=== PATIENT | female | born 1945 ===

== ENCOUNTER 2017-02-10 06:08 | Inpatient (IN) | payer MEDICARE, BC ==
[2017-02-09 07:55] VITALS: BMI 23.4
[2017-02-10] MEDS ORDERED: Midazolam 2 MG/2 ML VIAL ONE (07:00)
[2017-02-10] MEDS ORDERED: Propofol 10 mg/ml Inj (20 ML) ONE (07:01)
[2017-02-10] MEDS ORDERED: Phenylephrine 10 mg/ml Inj ONE (07:11)
[2017-02-10] MEDS ORDERED: Rocuronium 10 mg/ml (5 ml) ONE (07:11)
[2017-02-10] MEDS ORDERED: Absorbable Gelatin Sponge Size 100 ONE ×3 (07:29→12:37)
[2017-02-10] MEDS ORDERED: Thrombin Topical 20,000 Intl Units Spray Kit TOP ONE ×2 (07:29→12:35)
[2017-02-10] MEDS ORDERED: Bacitracin 50,000 UNIT in Sodium Chloride 0.9% Irrig 1,000 ML IR SCH (07:30)
[2017-02-10] MEDS ORDERED: Lidocaine 1% Inj (20ml) ONE (07:30)
[2017-02-10] MEDS ORDERED: HEPARIN-NS 5,000 UNITS/500 ML 5,000 UNIT/500 ML BAG IV ONE (07:35)
[2017-02-10] MEDS ORDERED: ceFAZolin IV 2 gm in Dextrose 1 GM/50 ML BAG IVPB ONE (08:06)
[2017-02-10] MEDS ORDERED: Lactated Ringer's 1,000 ML IV ONE ×4 (08:20→16:50)
[2017-02-10] MEDS ORDERED: Sodium Chloride 0.9% 500 ML IV ONE ×4 (08:31→09:05)
[2017-02-10] MEDS ORDERED: ceFAZolin IV 1 gm in Dextrose 0 GM/0 ML BAG IVPB ONE (08:36)
[2017-02-10] MEDS ORDERED: Thrombin Topical 5,000 IU Spray Kit ONE (12:27)
[2017-02-10] MEDS ORDERED: ceFAZolin IV 1 gm in Dextrose 1 GM/50 ML BAG IVPB ONE (12:43)
[2017-02-10] MEDS ORDERED: Neostigmine Methylsulfate 3mg/3ml Syringe IV ONE (13:27)
--- NOTE | 2017-02-10 13:34 | PCM.SURG1 ---
Surgeon's Initial Post Op Note - Surgeon's Notes Surgeon: Dr. Thomas Cloth Bolt Bander: Dr. Grant PGY3; Dr. Celis PGY2; Yesenia Garrett Type of Anesthesia: General Endo Pre-Operative Diagnosis: Right Carotid artery stenosis Operative Findings: see operative report Post-Operative Diagnosis: same Operation Performed: Right Carotid Endarterectomy Specimen/Specimens Removed: plaque Estimated Blood Loss: EBL {In ML}: 150 Blood Products Given: N/A Drains Used: No Drains Post-Op Condition: Good Date of Surgery/Procedure: 02/10/17 Time of Surgery/Procedure: 08:00
[2017-02-10] MEDS ORDERED: Oxycodone/Acetaminophen 5/325 mg Tab PO PRN (13:36)
[2017-02-10] MEDS ORDERED: Phenylephrine 30 MG in Dextrose 5% In Water 250 ML IV PRN (13:39)
[2017-02-10] MEDS ORDERED: Nitroglycerin 50mg in D5W 50 MG/250 ML BOTTLE IV PRN (13:45)
[2017-02-10] MEDS ORDERED: Lactated Ringer's 1,000 ML IV SCH (14:30)
[2017-02-10] MEDS: (Novolin R) Insulin Human Regular 100 units/ml vial SC SCH (16:50)
[2017-02-10] MEDS ORDERED: Fluticasone Nasal 50 mcg/Spray NAS PRN (18:00)
[2017-02-10] MEDS: ceFAZolin IV 1 gm in Dextrose 1 GM/50 ML BAG IVPB SCH (20:50)
--- NOTE | 2017-02-10 22:11 | CT ---
EXAM: CT Head Without Intravenous Contrast CLINICAL HISTORY: 71 years old, female; Signs and symptoms and condition or disease; Headache; Tension; Dizziness and weakness, extremity; Additional info: Post op carotid headache TECHNIQUE: Axial computed tomography images of the head/brain without intravenous contrast. All CT scans at this facility use one or more dose reduction techniques, viz.: automated exposure control; ma/kV adjustment per patient size (including targeted exams where dose is matched to indication; i.e. head); or iterative reconstruction technique. COMPARISON: No relevant prior studies available. FINDINGS: Beam hardening/streak artifact. Brain: Atrophy. Bilateral white matter changes. This is nonspecific and may include microangiopathic disease, small lacunae of indeterminate chronicity, chronic infarcts and/or encephalomalacia. Vascular calcification. No hemorrhage. No edema. Ventricles: No hydrocephalus. Bones: Skull is intact. Sinuses: No acute sinusitis. Mastoid air cells: No mastoid effusion. IMPRESSION: Beam hardening/streak artifact. Atrophy. Bilateral white matter changes. This is nonspecific and may include microangiopathic disease, small lacunae of indeterminate chronicity, chronic infarcts and/or encephalomalacia. Limited evaluation due to significant chronic changes without prior imaging for comparison. No acute intracranial hemorrhage. Acute infarcts/early ischemic changes may not be detectable by this modality; MRI is more sensitive in detecting acute ischemia.
[2017-02-10] MEDS: Sodium Chloride 0.9% 1,000 ML IV SCH (22:30)
--- NOTE | 2017-02-10 22:53 | CP.PCM.CON ---
History of Present Illness - History of Present Illness History of Present Illness: Attending: Mary De La Rosa MD PCP: Stephani Nunez MD Reason for Consult: Critical care Management Chief Complaint: s/p Right Endarterectomy/ right facial weakness Patient seen and examined in the ICU upon returning from surgery HPI: The hx was obtained from the Patient and the medical record review. She is a 71 years old female with hx of HTN, DM II, CAD s/p CABG, TIA who was admitted at the [facility] on 01/31/17 with chronic Dizziness and diagnosed with Symptomatic Right Internal Carotid Artery Stenosis of 80%. She had done on the MRA and MRI of the head along with Head CT. She was discharged on 02/03/17 and is here at the [facility] for the Right ICA Endarterectomy. She is transferred to the ICU for Hemodynamic management. Upon entry in the ICU she was awake and alert but was noted to have mild drooping on the right side of the face and was take for a Stat CT head where a code stroke was called as per protocol. PMH: HTN; HLD; DM II; CAD; Iron Deficiency Anemia; Gastric and Duodenal Ulcers; Multiple coplonic polyps; Diverticulosis; TIA; Right side Breast cancer; Skin Cancer; Cervical cancer, Chemo and radiotherapy; Unsteady gait; Cataract PSH: Tonsillectomy; Right lumpectomy 09/12/16; CABG X2 vessel 2013; Coronary stents inserted 2011; Bilateral cataract surgery; Multiple vascular procedures for lower extremity arterial stenosis; Right ICA Endarterectomy 02/10/17 SH: Non smoker; No Alcohol; No illegal drug use; Live with family; Uses a cane to ambulate FH: States Unknown family hx Allergies: NKDA Review of Systems - Review of Systems Systems not reviewed;Unavailable: Dementia Review of Systems: Review of systems limited because of the patient's dementia and mild post surgery lethargy. - Constitutional Constitutional: Headache - EENT Eyes: Requires Corrective Lenses. absent: Diplopia Ears: absent: Ear Discharge, Ear Pain, Tinnitus Nose/Mouth/Throat: Dry Mouth Additional comments: mild swelling of the left lower lip - Cardiovascular Cardiovascular: absent: Chest Pain, Dyspnea - Respiratory Respiratory: absent: Cough, Wheezing, Chest Congestion - Gastrointestinal Gastrointestinal: absent: Constipation, Diarrhea, Nausea, Vomiting - Genitourinary Genitourinary: absent: Dysuria, Flank Pain, Hematuria, Urinary Frequency - Neurological Neurological: Dizziness, Headaches - Hematologic/Lymphatic Hematologic: absent: Easy Bleeding, Easy Bruising Past Patient History - Infectious Disease Hx of Infectious Diseases: None - Tetanus Immunizations Tetanus Immunization: Unknown - Past Medical History & Family History Past Medical History?: Yes - Past Social History Smoking Status: Never Smoked Chewing Tobacco Use: No Cigar Use: No Alcohol: None Drugs: Denies Home Situation {Lives}: With Family - CARDIAC Hx Cardiac Disorders: Yes (CAD,UNSTABLE ANGINA,CABG X 2,ANGIOPLASTY) Hx Circulatory Problems: Yes Hx Hypercholesterolemia: Yes Hx Hypertension: Yes Hx Peripheral Vascular Disease: Yes Other/Comment: cabg 2 vessels, angioplasty carotid stenosis - PULMONARY Hx Respiratory Disorders: No - NEUROLOGICAL Hx Neurological Disorder: Yes Hx Dizziness: Yes (01-31-17) Hx Paralysis: No Hx Transient Ischemic Attacks (TIA): Yes - HEENT Hx HEENT Problems: Yes (DECREASED PHERIPEHRAL VISION SECONDARY TO CVA) Hx Cataracts: Yes (Bilateral surgery) - RENAL Hx Chronic Kidney Disease: No - ENDOCRINE/METABOLIC Hx Endocrine Disorders: Yes Hx Diabetes Mellitus Type 2: Yes - HEMATOLOGICAL/ONCOLOGICAL Hx Blood Disorders: Yes Hx Anemia: Yes Hx Blood Transfusions: Yes Hx Blood Transfusion Reaction: No Hx Cancer: Yes (Breast Ca RIGHT WITH LUMPECTOMY ONLY & SKin CA,CERVICAL CA) Hx Chemotherapy: Yes Other/Comment: diagnosed with r breast ca 2 yrs ago had chemo and radiation, RIGHT NOW ON CHEMO PO DRUGS 01-31-17 - INTEGUMENTARY Hx Dermatological Problems: No - MUSCULOSKELETAL/RHEUMATOLOGICAL Hx Musculoskeletal Disorders: Yes Hx Arthritis: Yes Hx Back Pain: Yes Hx Falls: Yes Hx Osteoarthritis: Yes Hx Unsteady Gait: Yes (CANE) - GASTROINTESTINAL Hx Gastrointestinal Disorders: Yes Hx Gastroesophageal Reflux: Yes Other/Comment: egd/colonoscopy 05/08/14,hiatal hernia, esophagitis, gastric erosions, duodenitis, diverticulosis, redundant colon, polyps, hemorrhoids - SURGICAL HISTORY Hx Surgeries: Yes Hx Cataract Extraction: Yes (BILATERAL) Hx Cardiac Catheterization: Yes Hx Coronary Artery Bypass Graft: Yes (02/2014) Hx Coronary Stent: Yes (ptca w/2 stents 2011) Hx Mastectomy: Yes (Right breast) Hx Open Heart Surgery: Yes Hx Tonsillectomy: Yes Other/Comment: R breast LUMPECTOMY, 09/12/16 abd aortagram and b/l lower ext runoff, angioplasty,stent - ANESTHESIA Hx Anesthesia: Yes Hx Anesthesia Reactions: No Hx Malignant Hyperthermia: No Meds Allergies/Adverse Reactions: Allergies Allergy/AdvReac Type Severity Reaction Status Date / Time No Known Allergies Allergy Verified 01/31/17 17:04 - Medications Medications: Current Medications Anastrozole (Arimidex 1 Mg Tab) 1 mg PO DAILY [facility] Clopidogrel Bisulfate (Plavix) 75 mg PO DAILY [facility] Enoxaparin Sodium (Lovenox) 40 mg SC DAILY [facility] Fluticasone Propionate (Flonase) 1 spr CHARLY DAILY PRN PRN Reason: Allergy symptoms Hydralazine HCl (Apresoline) 25 mg PO BID [facility] Last Admin: 02/10/17 18:00 Dose: 25 mg Hydrochlorothiazide (Microzide) 12.5 mg PO DAILY [facility] Nitroglycerin/Dextrose (Nitroglycerin 50 Mg/250 Ml D5w) 50 mg in 250 mls @ 1.5 mls/hr IV .Q24H PRN; Protocol; 5 MCG/MIN PRN Reason: TITRATE PER PROTOCOL Phenylephrine HCl 30 mg/ (Dextrose) 253 mls @ 10.12 mls/hr IV .Q24H PRN; Protocol; 20 MCG/MIN PRN Reason: TITRATE PER MD ORDER Sodium Chloride (Sodium Chloride 0.9%) 1,000 mls @ 75 mls/hr IV .[id number] [facility] Insulin Human Regular (Novolin R) 0 unit SC ACHS [facility] PRN Reason: Protocol Last Admin: 02/10/17 16:50 Dose: 2 unit Losartan Potassium (Cozaar) 50 mg PO DAILY [facility] Metformin HCl (Glucophage) 500 mg PO BID [facility] Last Admin: 02/10/17 18:00 Dose: 500 mg Metoprolol Tartrate (Lopressor) 50 mg PO BID [facility] Last Admin: 02/10/17 18:00 Dose: 50 mg Morphine Sulfate (Morphine) 1 mg IVP Q10M PRN PRN Reason: Pain, moderate (4-7) Last Admin: 02/10/17 16:07 Dose: 1 mg Morphine Sulfate (Morphine) 4 mg IVP Q4 PRN PRN Reason: Pain, moderate (4-7) Oxycodone/Acetaminophen (Percocet 5/325 Mg Tab) 2 tab PO Q4H PRN PRN Reason: Pain, moderate (4-7) Stop: 02/13/17 13:37 Last Admin: 02/10/17 18:05 Dose: 2 tab Rivastigmine (Exelon 9.5 Mg/24 Hr Patch) 1 patch TD DAILY [facility] Rosuvastatin Calcium (Crestor) 5 mg PO HS [facility] Physical Exam - Constitutional Appears: No Acute Distress - Head Exam Head Exam: ATRAUMATIC, NORMAL INSPECTION, NORMOCEPHALIC - Eye Exam Eye Exam: EOMI, Normal appearance Pupil Exam: NORMAL ACCOMODATION, PERRL - ENT Exam ENT Exam: Mucous Membranes Moist, Normal Exam. absent: Normal External Ear Exam , Normal Oropharynx - Neck Exam Additional comments: Post surgical dressing at the right neck , dry and clean. Post surgical neck pain - Respiratory Exam Respiratory Exam: Clear to Auscultation Bilateral. absent: Rales, Rhonchi, Wheezes - Cardiovascular Exam Cardiovascular Exam: REGULAR RHYTHM, RRR, +S1, +S2. absent: Gallop, JVD - GI/Abdominal Exam GI & Abdominal Exam: Normal Bowel Sounds, Soft. absent: Organomegaly, Tenderness - Rectal Exam Rectal Exam: Deferred - Extremities Exam Extremities exam: Positive for: full ROM, normal inspection. Negative for: calf tenderness, joint swelling Additional comments: Right forearm arterial line - Back Exam Back exam: NORMAL INSPECTION. absent: CVA tenderness (L), CVA tenderness (R) - Neurological Exam Neurological exam: Alert, CN II-XII Intact, Oriented x3, Reflexes Normal Additional comments: Awake and alert, clear speech, Diminished right nasolabial fold with the tongue rotating mildly to the right Motor strength 5/5 at all extremities - Psychiatric Exam Psychiatric exam: Normal Affect, Normal Mood - Skin Skin Exam: Dry, Intact, Normal Color, Warm Results - Vital Signs Recent Vital Signs: Last Vital Signs Temp 97.5 F L 02/10/17 20:30 Pulse 66 02/10/17 20:30 Resp 15 02/10/17 20:30 BP 141/57 L 02/10/17 20:30 Pulse Ox 100 02/10/17 20:30 - Labs Labs: Laboratory Results - last 24 hr 02/10/17 02/10/17 02/10/17 06:53 07:00 10:30 POC Glucose (mg/dL) 170 H 166 H Blood Type B POSITIVE Antibody Screen Negative 02/10/17 02/10/17 02/10/17 12:30 16:44 21:43 POC Glucose (mg/dL) 191 H 226 H 131 H Blood Type Antibody Screen - Imaging and Cardiology CT Head Status: Image reviewed by me, Report reviewed by me Additional comment: 02/10/17 Bilateral white matter changes. This is nonspecific and may include microangiopathic disease, small lacunae of indeterminate chronicity. Chronic infarct and / or encephalomalacia. No acute intracranial hemorrhage. MRI - head Status: Report reviewed by me Additional comment: 01/31/17 1. Superior right parietal lobe : There is a Small foci of restricted diffusion. Suggesting acute ischemic change 2. There are scattered foci of high Flair signal intensity within the cerebra white matter. representing chronic small vessel ischemic diseases . 3. Modest Atrophy 4. There id ventriculomegaly. Normal pressure of Hydrocephalus cannot be excluded 5. Additional chronic ischemic Assessment & Plan - Assessment and Plan (Free Text) Plan: 71 years old female, admitted at the [facility] on 01/31/17 and diagnosed with Symptomatic Right Internal Carotid Artery Stenosis of 80%. Now at the [facility] for the Right ICA Endarterectomy. She is transferred to the ICU for Hemodynamic management. Upon entry in the ICU she was awake and alert but was noted to have mild drooping on the right side of the face. #. R- ICA 80% stenosis s/p Right Endarterectomy - Blood pressure measurement with Arterial line measurement - Vascular surgery management #. Right facial weakness, of vs new CVA - Stat Head CT showed Chronic infarct and or Encephalomalacia - Consult Dr Lawton - Continue Plavix, Crestor and start ASA #. DM II - Humulog - Metformin - Aspart -Hba1c 6.5 on 02/02/17 #. HTN - Hydralizine/ Metoprolol, Losartn, HCTZ - Monitor BP #. CADs/p CABG - Plavix/ Crestor #. PUD - Pepcid #. DVT prophylaxis with Lovenox #. Code Status: Full - Date & Time Date: 02/10/17 Time: 22:53
[2017-02-11] MEDS: (Novolin R) Insulin Human Regular 100 units/ml vial SC SCH ×4 (02:10→16:35)
[2017-02-11] MEDS ORDERED: ceFAZolin IV 1 gm in Dextrose 1 GM/50 ML BAG IVPB ONE (04:00)
[2017-02-11 06:10] VITALS: TEMP 98.8
[2017-02-11 06:13] LABS: BASO % 0.3 % (0.0-2.0); HEMATOCRIT 20.3 % (34.0-47.0); LYMPH # 0.5 K/uL (1.0-4.3); LYMPH % 4.1 % (20.0-40.0); MEAN CELL VOLUME 84.5 fL (81.0-99.0); MEAN CORPUSCULAR HEMOGLOBIN 28.6 pg (27.0-31.0); MEAN CORPUSCULAR HGB CONC 33.9 g/dL (33.0-37.0); MEAN PLATELET VOLUME 9.2 fL (7.2-11.7); MONO # 1.7 K/uL (0.0-0.8); MONO % 13.3 % (0.0-10.0); PLATELET COUNT 140 K/uL (130-400); RED CELL DISTRIBUTION WIDTH 16.8 % (11.5-14.5); WHITE BLOOD COUNT 12.6 K/uL (4.8-10.8)
[2017-02-11 06:24] LABS: ALKALINE PHOSPHATASE 50 U/L (38-126); ALT/SGPT 20 U/L (9-52); AST/SGOT 20 U/L (14-36); BILIRUBIN,TOTAL 0.4 mg/dL (0.2-1.3); BLOOD UREA NITROGEN 19 mg/dL (7-17); CARBON DIOXIDE 22 mmol/L (22-30); CHLORIDE 101 mmol/L (98-107); GFR AFRICAN-AMERICAN > 60; GLUCOSE,RANDOM 142 mg/dL (65-105); MAGNESIUM 1.2 mg/dL (1.6-2.3); PHOSPHOROUS 3.2 mg/dL (2.5-4.5); POTASSIUM 3.5 mmol/L (3.6-5.2); SODIUM 136 mmol/L (132-148); TOTAL PROTEIN 6.6 g/dL (6.3-8.3)
[2017-02-11] MEDS: ceFAZolin IV 1 gm in Dextrose 1 GM/50 ML BAG IVPB SCH (08:03)
[2017-02-11 08:46] LABS: NEUTROPHIL 86 % (50-75); TOTAL CELLS COUNTED 100
[2017-02-11 08:47] LABS: LARGE PLATELETS PRESENT
[2017-02-11 09:02] LABS: BASO % 0.2 % (0.0-2.0); EOS % 0.1 % (0.0-4.0); HEMATOCRIT 23.1 % (34.0-47.0); LYMPH # 0.4 K/uL (1.0-4.3); LYMPH % 3.5 % (20.0-40.0); MEAN CORPUSCULAR HEMOGLOBIN 28.4 pg (27.0-31.0); MEAN CORPUSCULAR HGB CONC 34.1 g/dL (33.0-37.0); MONO % 16.1 % (0.0-10.0); RED CELL DISTRIBUTION WIDTH 16.8 % (11.5-14.5); WHITE BLOOD COUNT 12.5 K/uL (4.8-10.8)
[2017-02-11 09:14] LABS: CHLORIDE 101 mmol/L (98-107)
[2017-02-11 09:15] LABS: POTASSIUM 3.6 mmol/L (3.6-5.2); SODIUM 135 mmol/L (132-148)
[2017-02-11 09:17] LABS: ALB/GLOB RATIO 1.1 (1.0-2.1); AST/SGOT 22 U/L (14-36); BILIRUBIN,TOTAL 0.5 mg/dL (0.2-1.3); CARBON DIOXIDE 21 mmol/L (22-30); GFR AFRICAN-AMERICAN > 60; TOTAL PROTEIN 6.6 g/dL (6.3-8.3)
[2017-02-11 09:18] LABS: ALKALINE PHOSPHATASE 47 U/L (38-126); ALT/SGPT 19 U/L (9-52); BLOOD UREA NITROGEN 20 mg/dL (7-17); CALCIUM 8.6 mg/dl (8.6-10.4); GLUCOSE,RANDOM 132 mg/dL (65-105); MAGNESIUM 1.2 mg/dL (1.6-2.3)
[2017-02-11] MEDS ORDERED: Enoxaparin 40 mg Syringe SC SCH (10:00)
[2017-02-11] MEDS: Sodium Chloride 0.9% 1,000 ML IV SCH (10:46)
[2017-02-11 11:28] VITALS: O2SAT 100
[2017-02-11] MEDS ORDERED: Magnesium Sulfate 1 gm in D5W 1 GM/100 ML BAG IVPB ONE (12:15)
[2017-02-11 17:04] VITALS: PULSE 75
--- NOTE | 2017-02-11 18:41 | CP.CCUPN ---
CCU Subjective - Physician Review Events Since Last Encounter (Free Text): 02/27/17 10:59 Reason for Consult: Critical care Management Chief Complaint: s/p Right Endarterectomy/ right facial weakness Patient seen and examined in the ICU upon returning from surgery HPI: The hx was obtained from the Patient and the medical record review. She is a 71 years old female with hx of HTN, DM II, CAD s/p CABG, TIA who was admitted at the [facility] on 01/31/17 with chronic Dizziness and diagnosed with Symptomatic Right Internal Carotid Artery Stenosis of 80%. She had done on the MRA and MRI of the head along with Head CT. She was discharged on 02/03/17 and is here at the [facility] for the Right ICA Endarterectomy. She is transferred to the ICU for Hemodynamic management. Upon entry in the ICU she was awake and alert but was noted to have mild drooping on the right side of the face and was take for a Stat CT head where a code stroke was called as per protocol. PMH: HTN; HLD; DM II; CAD; Iron Deficiency Anemia; Gastric and Duodenal Ulcers; Multiple coplonic polyps; Diverticulosis; TIA; Right side Breast cancer; Skin Cancer; Cervical cancer, Chemo and radiotherapy; Unsteady gait; Cataract PSH: Tonsillectomy; Right lumpectomy 09/12/16; CABG X2 vessel 2013; Coronary stents inserted 2011; Bilateral cataract surgery; Multiple vascular procedures for lower extremity arterial stenosis; Right ICA Endarterectomy 02/10/17 SH: Non smoker; No Alcohol; No illegal drug use; Live with family; Uses a cane to ambulate FH: States Unknown family hx Allergies: NKDA Vital signs reviewed No neck vein distention noted Chest good air entry bilaterally, no wheezing or rales noted CVS regular heart sound, no murmur noted Abdomen soft, nontender. Extremities no pedal edema [employer] alert awake oriented 3, no functional neurological deficit Labs reviewed CAT scan reviewed Mild weakness in the right side of the face noted Assessment and recommendation: 72 female hypertension diabetes CAD coronary artery bypass graft admitted with TIA. Status post endarterectomy. Mild droop on the right side. less likely COPD Continue to monitor will follow the patient. ICU monitoring. Clinical stable otherwise CCU Objective - Vital Signs / Intake & Output Vital Signs (Last 4 hours): Vital Signs Pulse Resp BP Pulse Ox 02/11/17 18:00 75 19 02/11/17 17:39 80 15 137/51 L 02/11/17 17:00 75 14 02/11/17 16:38 66 14 100/40 L 02/11/17 16:00 65 15 02/11/17 15:00 71 17 100 Intake and Output (Last 8hrs): Intake & Output 02/11/17 02/11/17 02/11/17 06:59 14:59 22:59 Intake Total 600 975 180 Output Total 490 1000 475 Balance 110 -25 -295 Weight 145 lb 8.081 oz Intake: Intake, IV Amount 600 525 0 Left Antecubital 600 525 0 Oral 450 180 Output: Urine 490 1000 475 Urethral ([place]) 490 1000 475 Stool 0 0 Emesis 0 0 - Medications Active Medications: Active Medications Generic Name Dose Route Start Last Admin Trade Name Freq PRN Reason Stop Dose Admin Anastrozole 1 mg 02/11/17 10:00 02/11/17 10:34 Arimidex 1 Mg Tab PO 1 mg DAILY ROSANNE Administration Clopidogrel Bisulfate 75 mg 02/11/17 10:00 02/11/17 10:27 Plavix PO 75 mg DAILY ROSANNE Administration Enoxaparin Sodium 40 mg 02/11/17 10:00 02/11/17 10:29 Lovenox SC 40 mg DAILY ROSANNE Administration Famotidine 20 mg 02/11/17 10:00 02/11/17 10:28 Pepcid PO 20 mg DAILY ROSANNE Administration Fluticasone Propionate 1 spr 02/10/17 18:00 Flonase CHARLY DAILY PRN Allergy symptoms Hydralazine HCl 25 mg 02/10/17 18:00 02/11/17 17:10 Apresoline PO Not Given BID ROSANNE Hydrochlorothiazide 12.5 mg 02/11/17 10:00 02/11/17 10:28 Microzide PO 12.5 mg DAILY ROSANNE Administration Nitroglycerin/Dextrose 50 mg in 250 mls @ 1.5 mls/hr 02/10/17 13:45 Nitroglycerin 50 Mg/250 Ml D5w IV .Q24H PRN TITRATE PER PROTOCOL Protocol 5 MCG/MIN Phenylephrine HCl 30 mg/ 253 mls @ 10.12 mls/hr 02/10/17 13:39 Dextrose IV .Q24H PRN TITRATE PER MD ORDER Protocol 20 MCG/MIN Ibuprofen 600 mg 02/11/17 06:00 02/11/17 17:21 Motrin Tab PO 600 mg Q6 ROSANNE Administration Insulin Human Regular 0 unit 02/10/17 16:30 02/11/17 16:35 Novolin R SC Not Given ACHS [facility] Protocol Losartan Potassium 50 mg 02/11/17 10:00 02/11/17 10:27 Cozaar PO 50 mg DAILY ROSANNE Administration Metformin HCl 500 mg 02/10/17 18:00 02/11/17 17:21 Glucophage PO 500 mg BID ROSANNE Administration Metoprolol Tartrate 50 mg 02/10/17 18:00 02/11/17 17:10 Lopressor PO Not Given BID ROSANNE Morphine Sulfate 2 mg 02/11/17 00:17 02/11/17 16:35 Morphine IM 2 mg Q4 PRN Administration Pain, moderate (4-7) Morphine Sulfate 4 mg 02/11/17 00:20 Morphine IVP Q4 PRN Pain, severe (8-10) Oxycodone/Acetaminophen 2 tab 02/10/17 13:36 02/10/17 18:05 Percocet 5/325 Mg Tab PO 02/13/17 13:37 2 tab Q4H PRN Administration Pain, moderate (4-7) Rivastigmine 1 patch 02/11/17 10:45 02/11/17 10:45 Exelon 9.5 Mg/24 Hr Patch TD 1 patch DAILY ROSANNE Administration Rosuvastatin Calcium 5 mg 02/11/17 22:00 Crestor PO HS [facility] - Patient Studies Lab Studies: Lab Studies 02/11/17 02/11/17 02/11/17 Range/Units 16:08 11:23 08:54 WBC (4.8-10.8) K/uL RBC (3.80-5.20) Mil/uL Hgb (11.0-16.0) g/dL Hct (34.0-47.0) % MCV (81.0-99.0) fL MCH (27.0-31.0) pg MCHC (33.0-37.0) g/dL RDW (11.5-14.5) % Plt Count (130-400) K/uL MPV (7.2-11.7) fL Neut % (Auto) (50.0-75.0) % Lymph % (Auto) (20.0-40.0) % [place] % (Auto) (0.0-10.0) % Eos % (Auto) (0.0-4.0) % Baso % (Auto) (0.0-2.0) % Neut # (1.8-7.0) K/uL Lymph # (1.0-4.3) K/uL [place] # (0.0-0.8) K/uL Eos # (0.0-0.7) K/uL Baso # (0.0-0.2) K/uL Neutrophils % (Manual) (50-75) % Band Neutrophils % (0-2) % Lymphocytes % (Manual) (20-40) % Monocytes % (Manual) (0-10) % Platelet Estimate (NORMAL) Large Platelets Polychromasia Hypochromasia (manual) Poikilocytosis (manual Anisocytosis (manual) Ovalocytes Sodium 135 (132-148) mmol/L Potassium 3.6 (3.6-5.2) mmol/L Chloride 101 (98-107) mmol/L Carbon Dioxide 21 L (22-30) mmol/L Anion Gap 17 (10-20) BUN 20 H (7-17) mg/dL Creatinine 0.9 (0.7-1.2) MG/DL Est GFR ( Amer) > 60 Est GFR (Non-Af Amer) > 60 POC Glucose (mg/dL) 189 H 185 H (65-110) mg/dL Random Glucose 132 H (65-105) mg/dL Calcium 8.6 (8.6-10.4) mg/dl Phosphorus (2.5-4.5) mg/dL Magnesium 1.2 L (1.6-2.3) mg/dL Total Bilirubin 0.5 (0.2-1.3) mg/dL AST 22 (14-36) U/L ALT 19 (9-52) U/L Alkaline Phosphatase 47 (38-126) U/L Total Protein 6.6 (6.3-8.3) g/dL Albumin 3.5 (3.5-5.0) g/dL Globulin 3.1 (2.2-3.9) gm/dL Albumin/Globulin Ratio 1.1 (1.0-2.1) 09/02/1902/11/17 02/11/17 Range/Units 08:54 08:12 06:04 WBC 12.5 H (4.8-10.8) K/uL RBC 2.79 L (3.80-5.20) Mil/uL Hgb 7.9 L (11.0-16.0) g/dL Hct 23.1 L (34.0-47.0) % MCV 83.0 (81.0-99.0) fL MCH 28.4 (27.0-31.0) pg MCHC 34.1 (33.0-37.0) g/dL RDW 16.8 H (11.5-14.5) % Plt Count 134 (130-400) K/uL MPV 9.0 (7.2-11.7) fL Neut % (Auto) 80.1 H (50.0-75.0) % Lymph % (Auto) 3.5 L (20.0-40.0) % [place] % (Auto) 16.1 H (0.0-10.0) % Eos % (Auto) 0.1 (0.0-4.0) % Baso % (Auto) 0.2 (0.0-2.0) % Neut # 10.0 H (1.8-7.0) K/uL Lymph # 0.4 L (1.0-4.3) K/uL [place] # 2.0 H (0.0-0.8) K/uL Eos # 0.0 (0.0-0.7) K/uL Baso # 0.0 (0.0-0.2) K/uL Neutrophils % (Manual) (50-75) % Band Neutrophils % (0-2) % Lymphocytes % (Manual) (20-40) % Monocytes % (Manual) (0-10) % Platelet Estimate (NORMAL) Large Platelets Polychromasia Hypochromasia (manual) Poikilocytosis (manual Anisocytosis (manual) Ovalocytes Sodium 136 (132-148) mmol/L Potassium 3.5 L (3.6-5.2) mmol/L Chloride 101 (98-107) mmol/L Carbon Dioxide 22 (22-30) mmol/L Anion Gap 17 (10-20) BUN 19 H (7-17) mg/dL Creatinine 0.9 (0.7-1.2) MG/DL Est GFR ( Amer) > 60 Est GFR (Non-Af Amer) > 60 POC Glucose (mg/dL) 158 H (65-110) mg/dL Random Glucose 142 H (65-105) mg/dL Calcium 9.0 (8.6-10.4) mg/dl Phosphorus 3.2 (2.5-4.5) mg/dL Magnesium 1.2 L (1.6-2.3) mg/dL Total Bilirubin 0.4 (0.2-1.3) mg/dL AST 20 (14-36) U/L ALT 20 (9-52) U/L Alkaline Phosphatase 50 (38-126) U/L Total Protein 6.6 (6.3-8.3) g/dL Albumin 3.3 L (3.5-5.0) g/dL Globulin 3.4 (2.2-3.9) gm/dL Albumin/Globulin Ratio 1.0 (1.0-2.1) 02/11/17 02/10/17 Range/Units 06:04 21:43 WBC 12.6 H (4.8-10.8) K/uL RBC 2.40 L (3.80-5.20) Mil/uL Hgb 6.9 L (11.0-16.0) g/dL Hct 20.3 L (34.0-47.0) % MCV 84.5 (81.0-99.0) fL MCH 28.6 (27.0-31.0) pg MCHC 33.9 (33.0-37.0) g/dL RDW 16.8 H (11.5-14.5) % Plt Count 140 (130-400) K/uL MPV 9.2 (7.2-11.7) fL Neut % (Auto) 82.3 H (50.0-75.0) % Lymph % (Auto) 4.1 L (20.0-40.0) % [place] % (Auto) 13.3 H (0.0-10.0) % Eos % (Auto) 0.0 (0.0-4.0) % Baso % (Auto) 0.3 (0.0-2.0) % Neut # 10.4 H (1.8-7.0) K/uL Lymph # 0.5 L (1.0-4.3) K/uL [place] # 1.7 H (0.0-0.8) K/uL Eos # 0.0 (0.0-0.7) K/uL Baso # 0.0 (0.0-0.2) K/uL Neutrophils % (Manual) 86 H (50-75) % Band Neutrophils % 1 (0-2) % Lymphocytes % (Manual) 6 L (20-40) % Monocytes % (Manual) 7 (0-10) % Platelet Estimate Normal (NORMAL) Large Platelets Present Polychromasia Slight Hypochromasia (manual) Slight Poikilocytosis (manual Slight Anisocytosis (manual) Slight Ovalocytes Slight Sodium (132-148) mmol/L Potassium (3.6-5.2) mmol/L Chloride (98-107) mmol/L Carbon Dioxide (22-30) mmol/L Anion Gap (10-20) BUN (7-17) mg/dL Creatinine (0.7-1.2) MG/DL Est GFR ( Amer) Est GFR (Non-Af Amer) POC Glucose (mg/dL) 131 H (65-110) mg/dL Random Glucose (65-105) mg/dL Calcium (8.6-10.4) mg/dl Phosphorus (2.5-4.5) mg/dL Magnesium (1.6-2.3) mg/dL Total Bilirubin (0.2-1.3) mg/dL AST (14-36) U/L ALT (9-52) U/L Alkaline Phosphatase (38-126) U/L Total Protein (6.3-8.3) g/dL Albumin (3.5-5.0) g/dL Globulin (2.2-3.9) gm/dL Albumin/Globulin Ratio (1.0-2.1) Laboratory Results - last 24 hr 02/10/17 02/11/17 02/11/17 21:43 06:04 06:04 WBC 12.6 H RBC 2.40 L Hgb 6.9 L Hct 20.3 L MCV 84.5 MCH 28.6 MCHC 33.9 RDW 16.8 H Plt Count 140 MPV 9.2 Neut % (Auto) 82.3 H Lymph % (Auto) 4.1 L [place] % (Auto) 13.3 H Eos % (Auto) 0.0 Baso % (Auto) 0.3 Neut # 10.4 H Lymph # 0.5 L [place] # 1.7 H Eos # 0.0 Baso # 0.0 Neutrophils % (Manual) 86 H Band Neutrophils % 1 Lymphocytes % (Manual) 6 L Monocytes % (Manual) 7 Platelet Estimate Normal Large Platelets Present Polychromasia Slight Hypochromasia (manual) Slight Poikilocytosis (manual Slight Anisocytosis (manual) Slight Ovalocytes Slight Sodium 136 Potassium 3.5 L Chloride 101 Carbon Dioxide 22 Anion Gap 17 BUN 19 H Creatinine 0.9 Est GFR ( Amer) > 60 Est GFR (Non-Af Amer) > 60 POC Glucose (mg/dL) 131 H Random Glucose 142 H Calcium 9.0 Phosphorus 3.2 Magnesium 1.2 L Total Bilirubin 0.4 AST 20 ALT 20 Alkaline Phosphatase 50 Total Protein 6.6 Albumin 3.3 L Globulin 3.4 Albumin/Globulin Ratio 1.0 02/11/17 02/11/17 02/11/17 08:12 08:54 08:54 WBC 12.5 H RBC 2.79 L Hgb 7.9 L Hct 23.1 L MCV 83.0 MCH 28.4 MCHC 34.1 RDW 16.8 H Plt Count 134 MPV 9.0 Neut % (Auto) 80.1 H Lymph % (Auto) 3.5 L [place] % (Auto) 16.1 H Eos % (Auto) 0.1 Baso % (Auto) 0.2 Neut # 10.0 H Lymph # 0.4 L [place] # 2.0 H Eos # 0.0 Baso # 0.0 Neutrophils % (Manual) Band Neutrophils % Lymphocytes % (Manual) Monocytes % (Manual) Platelet Estimate Large Platelets Polychromasia Hypochromasia (manual) Poikilocytosis (manual Anisocytosis (manual) Ovalocytes Sodium 135 Potassium 3.6 Chloride 101 Carbon Dioxide 21 L Anion Gap 17 BUN 20 H Creatinine 0.9 Est GFR ( Amer) > 60 Est GFR (Non-Af Amer) > 60 POC Glucose (mg/dL) 158 H Random Glucose 132 H Calcium 8.6 Phosphorus Magnesium 1.2 L Total Bilirubin 0.5 AST 22 ALT 19 Alkaline Phosphatase 47 Total Protein 6.6 Albumin 3.5 Globulin 3.1 Albumin/Globulin Ratio 1.1 02/11/17 02/11/17 11:23 16:08 WBC RBC Hgb Hct MCV MCH MCHC RDW Plt Count MPV Neut % (Auto) Lymph % (Auto) [place] % (Auto) Eos % (Auto) Baso % (Auto) Neut # Lymph # [place] # Eos # Baso # Neutrophils % (Manual) Band Neutrophils % Lymphocytes % (Manual) Monocytes % (Manual) Platelet Estimate Large Platelets Polychromasia Hypochromasia (manual) Poikilocytosis (manual Anisocytosis (manual) Ovalocytes Sodium Potassium Chloride Carbon Dioxide Anion Gap BUN Creatinine Est GFR ( Amer) Est GFR (Non-Af Amer) POC Glucose (mg/dL) 185 H 189 H Random Glucose Calcium Phosphorus Magnesium Total Bilirubin AST ALT Alkaline Phosphatase Total Protein Albumin Globulin Albumin/Globulin Ratio Fingerstick Blood Sugar Results: 131 Critical Care Progress Note - Nutrition Nutrition: Nutrition Category Date Time Status Soft [Dysphagia/Modified Consistency Diet] [DIET] Diets 02/11/17 Lunch Active
[2017-02-11 19:03] VITALS: BP 104/40; RESP 18
--- NOTE | 2017-02-11 20:16 | CP.PCM.DIS ---
<Madhavi Grant - Last Filed: 02/11/17 20:13> Provider - Provider Date of Admission: 02/10/17 06:08 Attending physician: Mary Thomas MD Time Spent in preparation of Discharge (in minutes): 10 Diagnosis - Discharge Diagnosis (1) Carotid stenosis, right Status: Resolved Hospital Course - Lab Results Lab Results: Most Recent Lab Values WBC 12.5 K/uL (4.8-10.8) H 02/11/17 08:54 RBC 2.79 Mil/uL (3.80-5.20) L 02/11/17 08:54 Hgb 7.9 g/dL (11.0-16.0) L 02/11/17 08:54 Hct 23.1 % (34.0-47.0) L 02/11/17 08:54 MCV 83.0 fL (81.0-99.0) 02/11/17 08:54 MCH 28.4 pg (27.0-31.0) 02/11/17 08:54 MCHC 34.1 g/dL (33.0-37.0) 02/11/17 08:54 RDW 16.8 % (11.5-14.5) H 02/11/17 08:54 Plt Count 134 K/uL (130-400) 02/11/17 08:54 MPV 9.0 fL (7.2-11.7) 02/11/17 08:54 Neut % (Auto) 80.1 % (50.0-75.0) H 02/11/17 08:54 Lymph % (Auto) 3.5 % (20.0-40.0) L 02/11/17 08:54 [place] % (Auto) 16.1 % (0.0-10.0) H 02/11/17 08:54 Eos % (Auto) 0.1 % (0.0-4.0) 02/11/17 08:54 Baso % (Auto) 0.2 % (0.0-2.0) 02/11/17 08:54 Neut # 10.0 K/uL (1.8-7.0) H 02/11/17 08:54 Lymph # 0.4 K/uL (1.0-4.3) L 02/11/17 08:54 [place] # 2.0 K/uL (0.0-0.8) H 02/11/17 08:54 Eos # 0.0 K/uL (0.0-0.7) 02/11/17 08:54 Baso # 0.0 K/uL (0.0-0.2) 02/11/17 08:54 Neutrophils % (Manual) 86 % (50-75) H 02/11/17 06:04 Band Neutrophils % 1 % (0-2) 02/11/17 06:04 Lymphocytes % (Manual) 6 % (20-40) L 02/11/17 06:04 Monocytes % (Manual) 7 % (0-10) 02/11/17 06:04 Platelet Estimate Normal (NORMAL) 02/11/17 06:04 Large Platelets Present 02/11/17 06:04 Polychromasia Slight 02/11/17 06:04 Hypochromasia (manual) Slight 02/11/17 06:04 Poikilocytosis (manual Slight 02/11/17 06:04 Anisocytosis (manual) Slight 02/11/17 06:04 Ovalocytes Slight 02/11/17 06:04 Sodium 135 mmol/L (132-148) 02/11/17 08:54 Potassium 3.6 mmol/L (3.6-5.2) 02/11/17 08:54 Chloride 101 mmol/L (98-107) 02/11/17 08:54 Carbon Dioxide 21 mmol/L (22-30) L 02/11/17 08:54 Anion Gap 17 (10-20) 02/11/17 08:54 BUN 20 mg/dL (7-17) H 02/11/17 08:54 Creatinine 0.9 MG/DL (0.7-1.2) 02/11/17 08:54 Est GFR ( Amer) > 60 02/11/17 08:54 Est GFR (Non-Af Amer) > 60 02/11/17 08:54 POC Glucose (mg/dL) 189 mg/dL (65-110) H 02/11/17 16:08 Random Glucose 132 mg/dL (65-105) H 02/11/17 08:54 Calcium 8.6 mg/dl (8.6-10.4) 02/11/17 08:54 Phosphorus 3.2 mg/dL (2.5-4.5) 02/11/17 06:04 Magnesium 1.2 mg/dL (1.6-2.3) L 02/11/17 08:54 Total Bilirubin 0.5 mg/dL (0.2-1.3) 02/11/17 08:54 AST 22 U/L (14-36) 02/11/17 08:54 ALT 19 U/L (9-52) 02/11/17 08:54 Alkaline Phosphatase 47 U/L (38-126) 02/11/17 08:54 Total Protein 6.6 g/dL (6.3-8.3) 02/11/17 08:54 Albumin 3.5 g/dL (3.5-5.0) 02/11/17 08:54 Globulin 3.1 gm/dL (2.2-3.9) 02/11/17 08:54 Albumin/Globulin Ratio 1.1 (1.0-2.1) 02/11/17 08:54 Blood Type B POSITIVE 02/10/17 07:00 Antibody Screen Negative 02/10/17 07:00 - Hospital Course Hospital Course: 71 yo F w/ 80% R carotid artery stenosis who was admitted to the ICU after undergoing Right Carotid Endarterectomy with patch angioplasty. Surgery went well without complications. Pt developed some mild swelling post op which was to be expected. She was also noted to have a swollen lip which is commonly seen and most likely related to the ET tube during the surgery. Overall, pt did well postoperatively. BP remained well controlled throughout the night. On POD #1 she was tolerating a soft diet, pain was well controlled with PO meds , she was OOB and ambulatory. Pt was seen by the surgeon and clear for discharge home. Discharge Exam - Head Exam Head Exam: ATRAUMATIC, NORMAL INSPECTION, NORMOCEPHALIC - Eye Exam Eye Exam: EOMI, Normal appearance - Neck Exam Additional comments: mild swelling r lateral neck, dressing C/D/I, trachea midline - Respiratory Exam Respiratory Exam: NORMAL BREATHING PATTERN. absent: UNREMARKABLE - Neurological Exam Neurological exam: Alert, CN II-XII Intact, Normal Gait, Oriented x3 Additional comments: No motor or sensory deficits - Skin Skin Exam: Dry, Intact Discharge Plan - Discharge Medications Prescriptions: oxyCODONE/Acetaminophen [Percocet 5/325 mg Tab] 2 tab PO Q4H PRN #20 tab PRN Reason: Pain, Moderate (4-7) - Follow Up Plan Condition: GOOD Disposition: HOME/ ROUTINE Instructions: Carotid Endarterectomy (DC), Carotid Artery Disease (DC) Additional Instructions: F/U with Dr. Thomas in office in 1 week. You may shower. No soaking/bathing in tub. Resume regular diet and light activities. Continue Plavix/ASA. Referrals: Mary Thomas MD [Medical Doctor] - <Mary Thomas - Last Filed: 02/12/17 14:22> Provider - Provider Date of Admission: 02/10/17 06:08 Attending physician: Mary Thomas MD Hospital Course - Lab Results Lab Results: Micro Results 02/11/17 Unknown Naris MRSA Culture (Admit) - Final MRSA NOT DETECTED Most Recent Lab Values WBC 12.5 K/uL (4.8-10.8) H 02/11/17 08:54 RBC 2.79 Mil/uL (3.80-5.20) L 02/11/17 08:54 Hgb 7.9 g/dL (11.0-16.0) L 02/11/17 08:54 Hct 23.1 % (34.0-47.0) L 02/11/17 08:54 MCV 83.0 fL (81.0-99.0) 02/11/17 08:54 MCH 28.4 pg (27.0-31.0) 02/11/17 08:54 MCHC 34.1 g/dL (33.0-37.0) 02/11/17 08:54 RDW 16.8 % (11.5-14.5) H 02/11/17 08:54 Plt Count 134 K/uL (130-400) 02/11/17 08:54 MPV 9.0 fL (7.2-11.7) 02/11/17 08:54 Neut % (Auto) 80.1 % (50.0-75.0) H 02/11/17 08:54 Lymph % (Auto) 3.5 % (20.0-40.0) L 02/11/17 08:54 [place] % (Auto) 16.1 % (0.0-10.0) H 02/11/17 08:54 Eos % (Auto) 0.1 % (0.0-4.0) 02/11/17 08:54 Baso % (Auto) 0.2 % (0.0-2.0) 02/11/17 08:54 Neut # 10.0 K/uL (1.8-7.0) H 02/11/17 08:54 Lymph # 0.4 K/uL (1.0-4.3) L 02/11/17 08:54 [place] # 2.0 K/uL (0.0-0.8) H 02/11/17 08:54 Eos # 0.0 K/uL (0.0-0.7) 02/11/17 08:54 Baso # 0.0 K/uL (0.0-0.2) 02/11/17 08:54 Neutrophils % (Manual) 86 % (50-75) H 02/11/17 06:04 Band Neutrophils % 1 % (0-2) 02/11/17 06:04 Lymphocytes % (Manual) 6 % (20-40) L 02/11/17 06:04 Monocytes % (Manual) 7 % (0-10) 02/11/17 06:04 Platelet Estimate Normal (NORMAL) 02/11/17 06:04 Large Platelets Present 02/11/17 06:04 Polychromasia Slight 02/11/17 06:04 Hypochromasia (manual) Slight 02/11/17 06:04 Poikilocytosis (manual Slight 02/11/17 06:04 Anisocytosis (manual) Slight 02/11/17 06:04 Ovalocytes Slight 02/11/17 06:04 Sodium 135 mmol/L (132-148) 02/11/17 08:54 Potassium 3.6 mmol/L (3.6-5.2) 02/11/17 08:54 Chloride 101 mmol/L (98-107) 02/11/17 08:54 Carbon Dioxide 21 mmol/L (22-30) L 02/11/17 08:54 Anion Gap 17 (10-20) 02/11/17 08:54 BUN 20 mg/dL (7-17) H 02/11/17 08:54 Creatinine 0.9 MG/DL (0.7-1.2) 02/11/17 08:54 Est GFR ( Amer) > 60 02/11/17 08:54 Est GFR (Non-Af Amer) > 60 02/11/17 08:54 POC Glucose (mg/dL) 189 mg/dL (65-110) H 02/11/17 16:08 Random Glucose 132 mg/dL (65-105) H 02/11/17 08:54 Calcium 8.6 mg/dl (8.6-10.4) 02/11/17 08:54 Phosphorus 3.2 mg/dL (2.5-4.5) 02/11/17 06:04 Magnesium 1.2 mg/dL (1.6-2.3) L 02/11/17 08:54 Total Bilirubin 0.5 mg/dL (0.2-1.3) 02/11/17 08:54 AST 22 U/L (14-36) 02/11/17 08:54 ALT 19 U/L (9-52) 02/11/17 08:54 Alkaline Phosphatase 47 U/L (38-126) 02/11/17 08:54 Total Protein 6.6 g/dL (6.3-8.3) 02/11/17 08:54 Albumin 3.5 g/dL (3.5-5.0) 02/11/17 08:54 Globulin 3.1 gm/dL (2.2-3.9) 02/11/17 08:54 Albumin/Globulin Ratio 1.1 (1.0-2.1) 02/11/17 08:54 Blood Type B POSITIVE 02/10/17 07:00 Antibody Screen Negative 02/10/17 07:00 Discharge Exam - Head Exam Additional comments: Patient was seen and examined by me No neuro deficits Eating well headache is better Dr Thomas
--- NOTE | 2017-02-28 18:43 | OP ---
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 PROCEDURE PERFORMED: Right carotid artery endarterectomy. SURGEON: Mary Thomas MD. BOX SORTER: Dr. Anthony. ANESTHESIA: General anesthesia. FINDINGS: Ms. Mark is a 71-year-old female patient, presented with dizziness and the workup showed that she has an old infarction in the right hemisphere and severe stenosis in the right internal carotid artery. Risks and benefits were explained to the family and the patient regarding the medical versus surgical treatment and the recommendation was to proceed for surgery. Upon answering all the questions, informed consent was obtained and family agreed to proceed with the surgery. DESCRIPTION OF PROCEDURE: The patient came to operating room. She was lying in the supine position. She was prepped and draped in usual sterile fashion. General anesthesia was given for her. An incision was made on the anterior border of sternocleidomastoid muscle. The incision was carried down through the subcutaneous tissue down to the platysma which was opened along the line of incision. Dissection of the subplatysmal tissue was done until we identified the facial vein. The facial vein was ligated and we cut between ligatures. We identified the carotid sheath and opened it. We started dissection on the common carotid artery and got control using vessel loops. We dissected over the carotid artery slowly until the bifurcation. We controlled the external carotid artery in the superior thyroid and dissected the internal carotid artery for about 2 inches. The hypoglossal nerve was crossing in front of the bifurcation and we had to lift it up, so I cut the anterior brachialis and I lifted up and dissected for as much as I could. The bifurcation was high and reached dissection up to the posterior belly of digastric. After control of the vessel, 6000 units of heparin was given and 5 minutes later, we clamped internal carotid, external carotid artery, and the common carotid, and I opened the carotid artery and extended the incision down to the internal carotid artery. Our guide shunt was obtained and we inserted proximally and distally in the common carotid and the internal carotid to keep the blood flow into the brain. After we established the flow and we checked it with the Doppler, we started to clean the posterior wall of the carotid artery from the plaque, continued dissection until the plaque was removed completely, and we cleaned the posterior wall from any debris. The flushings were done with heparinized saline and the proximal end of the flap of the internal carotid artery, I fixed it with 7-0 Prolene to prevent any dissection. I used Hemashield patch to cover the arteriotomy site. I used 6-0 to fix it in a continuous fashion. Before the last couple of stitches, I took the shunt out and I flushed the artery covering the internal and external, and I finished the last couple of stitches. I allowed the flow to go first to the external carotid artery and in a few seconds, I allowed to go to the internal carotid artery. We checked it by Doppler with a good signal to the external and to the internal carotid artery. We irrigated the area with Bacitracin solution and hemostasis was secured. We used Gelfoam and thrombin for hemostasis and we closed the wound in layer using 2-0 Vicryl and 3-0 Vicryl. No complication during the procedure. The patient tolerated the procedure well and she woke up from anesthesia. We checked her neurological status and there was no problem, and no complication during the procedure. We closed the wound using 2-0 Vicryl and 3-0 Vicryl and the skin with 4-0 Monocryl. The patient woke up smoothly from the anesthesia and there was no neurological deficit when we examined her and transferred to recovery room. Mary Thomas MD
== END 2017-02-11 20:44 | disposition home or self-care (01) | DRG 39 ==
LOC: C.9S 06:08 → C.9I 19:51
PROVIDERS: ADMIT Surgery; ATTEND Surgery
PROC: 03UK0JZ Supplement Right Internal Carotid Artery with Synthetic Substitute, Open Approach (ICD-10-PCS; 2017-02-10)
PROC: 03CK0ZZ Extirpation of Matter from Right Internal Carotid Artery, Open Approach (ICD-10-PCS; principal; 2017-02-10 07:45)
DX: I65.21 Occlusion and stenosis of right carotid artery (principal); E11.9 Type 2 diabetes mellitus without complications; K27.9 Peptic ulcer, site unspecified, unspecified as acute or chronic, without hemorrhage or perforation; I10 Essential (primary) hypertension; R29.810 Facial weakness; E78.00 Pure hypercholesterolemia, unspecified; I73.9 Peripheral vascular disease, unspecified; I25.10 Atherosclerotic heart disease of native coronary artery without angina pectoris; Z79.4 Long term (current) use of insulin; Z85.3 Personal history of malignant neoplasm of breast; Z85.41 Personal history of malignant neoplasm of cervix uteri; Z86.73 Personal history of transient ischemic attack (TIA), and cerebral infarction without residual deficits; Z95.1 Presence of aortocoronary bypass graft; Z92.3 Personal history of irradiation; Z95.5 Presence of coronary angioplasty implant and graft